=== PATIENT | female | born 1995 | race Caucasian/White ===

== ENCOUNTER 2017-04-06 11:00 | Inpatient (IN) | payer OTHER ==
[~2017-04-06] VITALS: Ht 162.6 cm; Wt 108.9 kg
[2017-04-06 11:15] VITALS: Ht 162.6 cm; Wt 108.9 kg
[2017-04-06 13:10] LABS: BASOPHIL % 0.4 % (0-2); PLATELET COUNT 181 x10^3mcL (130-400)
[2017-04-06 13:20] LABS: ALBUMIN 3.8 g/dL (3.4-5.0); ALKALINE PHOSPHATASE 70 U/L (46-116); ALT/SGPT 34 U/L (14-59); AST/SGOT 25 U/L (15-37); BILIRUBIN TOTAL 0.5 mg/dL (0.20-1.00); CALCIUM 9.1 mg/dL (8.5-10.1); CARBON DIOXIDE 22.2 mmol/L (21-32); CHLORIDE SERUM 103 mmol/L (98-107); CREATININE SERUM 0.8 mg/dL (0.6-1.0); GFR1 > 60 mL/min; GLUCOSE SERUM 87 mg/dL (74-106); LIPASE 286 IU/L (73-393); SODIUM SERUM 143 mmol/L (136-145); TOTAL PROTEIN, SERUM 7.5 g/dL (6.4-8.2)
[2017-04-06 13:23] LABS: RED CELL DISTRIBUTION WIDTH 14.8 % (11.5-14.5)
[2017-04-06 15:03] LABS: T3 TOTAL 0.82 ng/mL
[2017-04-06 15:13] LABS: MAGNESIUM 1.9 mg/dL (1.8-2.4); PHOSPHOROUS 2.8 mg/dL (2.5-4.9)
[2017-04-06 15:16] LABS: CHOLESTEROL/HDL RATIO 2.8
[2017-04-06 15:23] LABS: FREE T4 1.35 ng/dL (0.76-1.46); FREE THYROXINE INDEX 3.2 ug/dL (1.4-4.5)
[2017-04-06 16:00] LABS: UA SPECIFIC GRAVITY >=1.030 (1.005-1.035); microscopic required? YES; urine erythrocyte NEGATIVE (NEGATIVE)
[2017-04-06 16:17] LABS: AMPHETAMINE QUAL UR NONE DETECTED (NEG <=1000)
[2017-04-06 16:22] VITALS: BP 129/72
[2017-04-06 17:20] VITALS: BP 114/70
[2017-04-06 21:11] VITALS: BP 107/64
[2017-04-07] VITALS (7 sets, daily range): BP systolic 107–129; BP diastolic 55–79
[2017-04-07 00:34] LABS: BASOPHIL % 0.4 % (0-2); PLATELET COUNT 142 x10^3mcL (130-400)
[2017-04-07 00:35] LABS: RED CELL DISTRIBUTION WIDTH 14.7 % (11.5-14.5)
[2017-04-07 01:04] LABS: ALKALINE PHOSPHATASE 59 U/L (46-116); ALT/SGPT 42 U/L (14-59); AST/SGOT 52 U/L (15-37); BILIRUBIN TOTAL 0.4 mg/dL (0.20-1.00); CARBON DIOXIDE 20.3 mmol/L (21-32); CHLORIDE SERUM 107 mmol/L (98-107); CREATININE SERUM 0.7 mg/dL (0.6-1.0); GFR1 > 60 mL/min; GLUCOSE SERUM 160 mg/dL (74-106); POTASSIUM SERUM 3.3 mmol/L (3.5-5.1); SODIUM SERUM 143 mmol/L (136-145)
[2017-04-07 01:05] LABS: ALBUMIN 2.9 g/dL (3.4-5.0); TOTAL PROTEIN, SERUM 5.8 g/dL (6.4-8.2)
[2017-04-07 08:17] LABS: ALKALINE PHOSPHATASE 61 U/L (46-116); ALT/SGPT 49 U/L (14-59); AST/SGOT 56 U/L (15-37); BILIRUBIN TOTAL 0.4 mg/dL (0.20-1.00); CALCIUM 8.1 mg/dL (8.5-10.1); CHLORIDE SERUM 104 mmol/L (98-107); CREATININE SERUM 0.7 mg/dL (0.6-1.0); GFR1 > 60 mL/min; GLUCOSE SERUM 135 mg/dL (74-106); POTASSIUM SERUM 3.2 mmol/L (3.5-5.1); SODIUM SERUM 139 mmol/L (136-145); TOTAL PROTEIN, SERUM 6.3 g/dL (6.4-8.2)
[2017-04-07 08:20] LABS: BASOPHIL % 0.1 % (0-2); PLATELET COUNT 151 x10^3mcL (130-400)
[2017-04-07 08:35] LABS: MAGNESIUM 1.6 mg/dL (1.8-2.4); PHOSPHOROUS 1.5 mg/dL (2.5-4.9)
[2017-04-07 08:39] LABS: ALBUMIN 3.1 g/dL (3.4-5.0)
[2017-04-07 08:41] LABS: RED CELL DISTRIBUTION WIDTH 15.1 % (11.5-14.5)
[2017-04-08 06:46] VITALS: BP 99/58
[2017-04-08 07:10] LABS: BASOPHIL % 0.2 % (0-2); PLATELET COUNT 162 x10^3mcL (130-400)
[2017-04-08 07:33] LABS: CALCIUM 8.3 mg/dL (8.5-10.1); CARBON DIOXIDE 20.9 mmol/L (21-32); CHLORIDE SERUM 107 mmol/L (98-107); CREATININE SERUM 0.7 mg/dL (0.6-1.0); GFR1 > 60 mL/min; GLUCOSE SERUM 93 mg/dL (74-106); MAGNESIUM 1.7 mg/dL (1.8-2.4); PHOSPHOROUS 2.6 mg/dL (2.5-4.9); POTASSIUM SERUM 3.2 mmol/L (3.5-5.1); SODIUM SERUM 141 mmol/L (136-145)
[2017-04-08 08:35] LABS: RED CELL DISTRIBUTION WIDTH 15.1 % (11.5-14.5)
[2017-04-08 10:09] VITALS: BP 118/71
[2017-04-08 14:21] VITALS: BP 117/71
[2017-04-08 17:20] VITALS: BP 126/79
[2017-04-08 21:42] VITALS: BP 119/76
[2017-04-09 05:46] VITALS: BP 116/76
[2017-04-09 07:25] LABS: BASOPHIL % 0.5 % (0-2); PLATELET COUNT 159 x10^3mcL (130-400)
[2017-04-09 07:26] LABS: RED CELL DISTRIBUTION WIDTH 15.4 % (11.5-14.5)
[2017-04-09 07:53] LABS: CALCIUM 8.3 mg/dL (8.5-10.1); CHLORIDE SERUM 104 mmol/L (98-107); CREATININE SERUM 0.6 mg/dL (0.6-1.0); GFR1 > 60 mL/min; GLUCOSE SERUM 88 mg/dL (74-106); MAGNESIUM 1.8 mg/dL (1.8-2.4); PHOSPHOROUS 2.4 mg/dL (2.5-4.9); SODIUM SERUM 143 mmol/L (136-145)
[2017-04-09 07:55] LABS: POTASSIUM SERUM 2.6 mmol/L (3.5-5.1)
[2017-04-09 09:16] VITALS: BP 121/74
[2017-04-09 17:40] VITALS: BP 111/71
[2017-04-09 21:35] VITALS: BP 126/80
[2017-04-10 06:19] VITALS: BP 108/66
[2017-04-10 06:41] LABS: BASOPHIL % 0.5 % (0-2); PLATELET COUNT 159 x10^3mcL (130-400)
[2017-04-10 06:45] LABS: RED CELL DISTRIBUTION WIDTH 15.1 % (11.5-14.5)
[2017-04-10 07:22] LABS: CALCIUM 8.3 mg/dL (8.5-10.1); CARBON DIOXIDE 28.4 mmol/L (21-32); CHLORIDE SERUM 104 mmol/L (98-107); CREATININE SERUM 0.6 mg/dL (0.6-1.0); GFR1 > 60 mL/min; GLUCOSE SERUM 70 mg/dL (74-106); PHOSPHOROUS 3.2 mg/dL (2.5-4.9); POTASSIUM SERUM 3.3 mmol/L (3.5-5.1); SODIUM SERUM 143 mmol/L (136-145)
[2017-04-10 09:20] VITALS: BP 123/73
[2017-04-10 09:26] LABS: BILIRUBIN DIRECT 0.11 mg/dL (0.0-0.2); BILIRUBIN TOTAL 0.3 mg/dL (0.20-1.00)
[2017-04-10 09:35] LABS: ALBUMIN 2.9 g/dL (3.4-5.0); TOTAL PROTEIN, SERUM 5.9 g/dL (6.4-8.2)
[2017-04-10 17:53] VITALS: BP 92/67
[2017-04-10 20:21] VITALS: BP 120/80
[2017-04-11 05:35] VITALS: BP 120/76
[2017-04-11 07:34] LABS: BASOPHIL % 0.4 % (0-2); PLATELET COUNT 165 x10^3mcL (130-400)
[2017-04-11 07:41] LABS: CALCIUM 8.5 mg/dL (8.5-10.1); CHLORIDE SERUM 104 mmol/L (98-107); CREATININE SERUM 0.6 mg/dL (0.6-1.0); GFR1 > 60 mL/min; GLUCOSE SERUM 71 mg/dL (74-106); MAGNESIUM 1.8 mg/dL (1.8-2.4); PHOSPHOROUS 3.2 mg/dL (2.5-4.9); POTASSIUM SERUM 3.1 mmol/L (3.5-5.1); RED CELL DISTRIBUTION WIDTH 15.2 % (11.5-14.5); SODIUM SERUM 140 mmol/L (136-145)
[2017-04-11 09:20] VITALS: BP 119/74
[2017-04-11] MEDS ORDERED: ACETAMINOPHEN-H1 TA1 PO ×2 (10:19→10:25)
[2017-04-11] MEDS ORDERED: ZOFRAN ODT4 MG SL (10:20)
[2017-04-11] MEDS ORDERED: COLACE100 MG PO (10:50)
[2017-04-11] MEDS ORDERED: DAILY MULTIPLE PO (10:50)
[2017-04-11 13:10] VITALS: BP 122/75
[2017-04-11 13:32] VITALS: BP 119/74
[2017-04-11 17:10] VITALS: BP 132/78
== END 2017-04-11 19:30 | disposition home or self-care (01) | DRG 417 ==
LOC: ED 11:00 → DU 14:03 → MU 14:03 → DU 16:22 → MU 04-08 22:06
PROVIDERS: Emergency Medicine; Family Medicine; Family Medicine Sports Medicine; Surgery
PROC: 0FT44ZZ Resection of Gallbladder, Percutaneous Endoscopic Approach (ICD-10-PCS; principal; 2017-04-06 20:00)
DX: K80.00 Calculus of gallbladder with acute cholecystitis without obstruction (principal); N17.0 Acute kidney failure with tubular necrosis; Z68.41 Body mass index [BMI] 40.0-44.9, adult; E44.0 Moderate protein-calorie malnutrition; E83.42 Hypomagnesemia; E83.39 Other disorders of phosphorus metabolism; E87.6 Hypokalemia; E66.01 Morbid (severe) obesity due to excess calories; Z98.84 Bariatric surgery status; K76.0 Fatty (change of) liver, not elsewhere classified; Z53.29 Procedure and treatment not carried out because of patient's decision for other reasons; K21.9 Gastro-esophageal reflux disease without esophagitis
CPT/HCPCS: 83880; 84439; J0330; J1644; J1885; J1956; J2175; J2250; J2405; J2543; J2550; J2704; J2710; J2765; J3010; J3480; J3490; J7030; J7120; Q0092; Q0169; Q9966

== ENCOUNTER 2017-04-23 12:18 | Emergency (ER) | payer OTHER ==
[~2017-04-23] VITALS: Ht 152.4 cm; Wt 102.6 kg
[~2017-04-23 12:18] MED LIST: ACETAMINOPHEN-H1 TA1 PO; COLACE100 MG PO; DAILY MULTIPLE PO; ZOFRAN ODT4 MG SL
[2017-04-23 12:42] VITALS: BP 128/72; Ht 152.4 cm; Wt 102.6 kg
[2017-04-23 13:14] LABS: PLATELET COUNT 299 x10^3mcL (130-400)
[2017-04-23 13:19] LABS: CALCIUM 9.9 mg/dL (8.5-10.1); CARBON DIOXIDE 25.3 mmol/L (21-32); CHLORIDE SERUM 97 mmol/L (98-107); CREATININE SERUM 0.8 mg/dL (0.6-1.0); GFR1 > 60 mL/min; GLUCOSE SERUM 105 mg/dL (74-106); POTASSIUM SERUM 3.8 mmol/L (3.5-5.1); SODIUM SERUM 136 mmol/L (136-145)
[2017-04-23 13:23] LABS: ALBUMIN 3.5 g/dL (3.4-5.0); ALKALINE PHOSPHATASE 77 U/L (46-116); ALT/SGPT 62 U/L (14-59); AMYLASE 72 U/L (25-115); AST/SGOT 29 U/L (15-37); BILIRUBIN TOTAL 0.56 mg/dL (0.20-1.00); LIPASE 209 IU/L (73-393)
[2017-04-23 13:27] LABS: BASOPHIL % 3.8 % (0-2); RED CELL DISTRIBUTION WIDTH 14.6 % (11.5-14.5)
[2017-04-23 16:53] LABS: microscopic required? NO
[2017-04-23 16:58] LABS: urine erythrocyte NEGATIVE (NEGATIVE)
== END 2017-04-23 18:31 | disposition home or self-care (01) ==
LOC: ED 12:18
PROVIDERS: Emergency Medicine
DX: R11.10 Vomiting, unspecified (principal); Z90.49 Acquired absence of other specified parts of digestive tract
CPT/HCPCS: 36415; Q0162

== ENCOUNTER 2017-04-30 15:12 | Inpatient (IN) | payer OTHER ==
[~2017-04-30] VITALS: Ht 162.6 cm; Wt 100.8 kg
[2017-04-30 15:21] VITALS: Ht 162.6 cm; Wt 100.8 kg
[2017-04-30 16:03] LABS: BASOPHIL % 0.4 % (0-2); PLATELET COUNT 218 x10^3mcL (130-400); RED CELL DISTRIBUTION WIDTH 14.8 % (11.5-14.5)
[2017-04-30 16:12] LABS: CALCIUM 9.3 mg/dL (8.5-10.1); CARBON DIOXIDE 18.9 mmol/L (21-32); CHLORIDE SERUM 99 mmol/L (98-107); CREATININE SERUM 0.8 mg/dL (0.6-1.0); GFR1 > 60 mL/min; GLUCOSE SERUM 120 mg/dL (74-106); POTASSIUM SERUM 3.1 mmol/L (3.5-5.1); SODIUM SERUM 140 mmol/L (136-145)
[2017-04-30 16:17] LABS: ALKALINE PHOSPHATASE 67 U/L (46-116); ALT/SGPT 54 U/L (14-59); AST/SGOT 29 U/L (15-37); BILIRUBIN TOTAL 0.6 mg/dL (0.20-1.00); CHOLESTEROL 161 mg/dL (<200); HDL CHOLESTEROL 41 mg/dL (40-60); PHOSPHOROUS 2.4 mg/dL (2.5-4.9); TOTAL PROTEIN, SERUM 7.2 g/dL (6.4-8.2); URIC ACID 8.3 mg/dL (2.6-6.0)
[2017-04-30 16:18] LABS: ALBUMIN 3.3 g/dL (3.4-5.0)
[2017-04-30 19:03] VITALS: BP 100/72
[2017-04-30 19:37] LABS: T3 TOTAL 1.06 ng/mL
[2017-04-30 19:38] LABS: CHOLESTEROL/HDL RATIO 3.9; MAGNESIUM 1.7 mg/dL (1.8-2.4)
[2017-04-30 19:52] LABS: FREE T4 1.69 ng/dL (0.76-1.46); T4(THYROXINE) 10.9 ug/dL (4.7-13.3)
[2017-04-30 21:29] VITALS: BP 114/72
[2017-05-01 05:52] VITALS: BP 109/70
[2017-05-01 07:06] LABS: CALCIUM 8.7 mg/dL (8.5-10.1); CARBON DIOXIDE 22.2 mmol/L (21-32); CHLORIDE SERUM 104 mmol/L (98-107); CREATININE SERUM 0.7 mg/dL (0.6-1.0); GFR1 > 60 mL/min; GLUCOSE SERUM 72 mg/dL (74-106); MAGNESIUM 2.7 mg/dL (1.8-2.4); PHOSPHOROUS 3.1 mg/dL (2.5-4.9); POTASSIUM SERUM 3.6 mmol/L (3.5-5.1); SODIUM SERUM 142 mmol/L (136-145)
[2017-05-01 07:10] LABS: BASOPHIL % 0.4 % (0-2); PLATELET COUNT 189 x10^3mcL (130-400); RED CELL DISTRIBUTION WIDTH 15.4 % (11.5-14.5)
[2017-05-01 09:15] VITALS: BP 109/68
[2017-05-01 13:35] VITALS: BP 126/78
[2017-05-01 17:23] VITALS: BP 114/64
[2017-05-01 21:00] VITALS: BP 122/73
[2017-05-02 05:59] VITALS: BP 114/76
[2017-05-02 07:14] LABS: BASOPHIL % 0.5 % (0-2); PLATELET COUNT 173 x10^3mcL (130-400)
[2017-05-02 07:32] LABS: CALCIUM 8.3 mg/dL (8.5-10.1); CARBON DIOXIDE 23.7 mmol/L (21-32); CHLORIDE SERUM 104 mmol/L (98-107); CREATININE SERUM 0.6 mg/dL (0.6-1.0); GFR1 > 60 mL/min; GLUCOSE SERUM 75 mg/dL (74-106); POTASSIUM SERUM 3.2 mmol/L (3.5-5.1); SODIUM SERUM 140 mmol/L (136-145)
[2017-05-02 07:38] LABS: RED CELL DISTRIBUTION WIDTH 15.3 % (11.5-14.5)
[2017-05-02 08:07] LABS: AMPHETAMINE QUAL UR NONE DETECTED (NEG <=1000)
[2017-05-02] MEDS ORDERED: SEN PO (12:26)
[2017-05-02] MEDS ORDERED: REG10 PO ×2 (12:27→17:45)
[2017-05-02] MEDS ORDERED: MECLIZINE HYDRO25 M1 PO ×2 (12:29→17:45)
[2017-05-02] MEDS ORDERED: BIAXIN FILMTAB500 MG PO ×2 (12:56→17:45)
[2017-05-02] MEDS ORDERED: AMOXICILLIN875 MG PO ×2 (12:58→17:45)
[2017-05-02] MEDS ORDERED: LAC PO ×2 (12:59→17:45)
[2017-05-02] MEDS ORDERED: PRILOSEC OTC20 M1 PO (13:00)
[2017-05-02 13:31] VITALS: BP 100/66
[2017-05-02 17:45] VITALS: BP 131/87
[2017-05-02] MEDS ORDERED: PRI20 PO (17:45)
== END 2017-05-02 20:28 | disposition home or self-care (01) | DRG 394 ==
LOC: ED 15:12 → DU 17:40
PROVIDERS: Emergency Medicine; Family Medicine; Internal Medicine Gastroenterology
PROC: 0DB78ZX Excision of Stomach, Pylorus, Via Natural or Artificial Opening Endoscopic, Diagnostic (ICD-10-PCS; principal; 2017-05-02 09:30)
DX: K95.89 Other complications of other bariatric procedure (principal); E44.0 Moderate protein-calorie malnutrition; E86.0 Dehydration; E87.6 Hypokalemia; E83.39 Other disorders of phosphorus metabolism; E79.0 Hyperuricemia without signs of inflammatory arthritis and tophaceous disease; E66.9 Obesity, unspecified; Z98.84 Bariatric surgery status; Z68.37 Body mass index [BMI] 37.0-37.9, adult; Z90.49 Acquired absence of other specified parts of digestive tract; G90.8 Other disorders of autonomic nervous system; K29.70 Gastritis, unspecified, without bleeding
CPT/HCPCS: 43235; 82962; 83880; 84439; J0780; J1200; J1610; J2060; J2250; J2310; J2405; J2765; J3010; J3475; J3490; J7030; J8597; Q0092; Q9963; Q9967

== ENCOUNTER 2017-05-09 17:44 | Emergency (ER) | payer OTHER ==
[~2017-05-09 17:44] MED LIST changes: +AMOXICILLIN875 MG PO; +BIAXIN FILMTAB500 MG PO; +LAC PO; +MECLIZINE HYDRO25 M1 PO; +PRI20 PO; +PRILOSEC OTC20 M1 PO; +REG10 PO; +SEN PO
[2017-05-09 20:03] VITALS: BP 138/90
== END 2017-05-09 20:04 | disposition home or self-care (01) ==
LOC: ED 17:44
DX: H53.8 Other visual disturbances (principal)